=== PATIENT | male | born 1980 | race Caucasian/White ===

== ENCOUNTER 2016-03-16 17:04 | Emergency (ER) | payer BC ==
[~2016-03-16] VITALS: Ht 190.5 cm; Wt 139.7 kg
[2016-03-16 17:18] VITALS: BP 147/97
--- NOTE | 2016-03-16 17:25 | NUR ---
Physician provides patient with large glass of iced water.
[2016-03-16 18:15] LABS: BASOPHILS % (AUTO) 1 % (0-2); EOSINOPHILS # (AUTO) 0.1 10^3uL; EOSINOPHILS % (AUTO) 2 % (0-4); LYMPHOCYTES # (AUTO) 1.7 X10^3; MEAN CORPUSCULAR HEMOGLOBIN 29.8 PG (26.0-34.0); MEAN CORPUSCULAR VOLUME 83 FL (80-100); MEAN PLATELET VOLUME 10.5 FL (6.0-9.5); MONOCYTES # (AUTO) 0.7 X10^3; MONOCYTES % (AUTO) 13 % (3-11); NEUTROPHILS # (AUTO) 2.9 X10^3; NEUTROPHILS % (AUTO) 53 % (51-67); PLATELET COUNT 228 10^3uL (150-450); WHITE BLOOD COUNT 5.46 10^3uL (4.0-11.0)
[2016-03-16 18:17] LABS: MEAN CORPUSCULAR HGB CONC 35.7 g/dL (31.0-37.0)
[2016-03-16 18:26] LABS: ANION GAP 14.7 MEQ/L (3-15); CALCULATED IONIZED CALCIUM 3.7 mg/dL (3.8-4.6); TOTAL PROTEIN 7.3 g/dL (6.4-8.5)
--- NOTE | 2016-03-16 18:35 | NUR ---
Kaycee grace in EDM - 03/16/16 at 2001 by [id number] RT LOWER LEG WOUND COVERED WITH STERILE 4X4 AND COBAN AFTER MD FINISHES WITH INCISION/DRAINAGE OF ABCESS AND PLACING APPROX 3.5" OF IODOFORM PACKING GAUZE. PATIENT DID COMPLAIN OF INCREASED PAIN DURING THE I&D BUT OVERALL TOLERATED WELL.
== END 2016-03-16 19:07 | disposition home or self-care (01) ==
LOC: ED 17:08
DX: R19.5 Other fecal abnormalities (principal); R53.1 Weakness
CPT/HCPCS: 36415; 80053; 83690; 85025; 99282

== ENCOUNTER 2016-06-28 08:51 | Emergency (ER) | payer BC ==
[~2016-06-28] VITALS: Ht 190.5 cm; Wt 136.0 kg
--- OUTSIDE RECORDS SUMMARY | 2016-06-28 08:55 | XMS REPORT | Summary of Care ---
Author Author Shin Monreal M.D. Organization Unknown Address Unknown Phone Unavailable Care Team Providers Care Welding Operator Name Role Phone Shin Monreal M.D. Unavailable Unavailable PCP Assignment in Process Unavailable Unavailable Unavailable Unavailable Functional Status Name Dates Details Functional status health issues are not documented Status: Name Dates Details Cognitive status health issues are not documented Status: Problems Name Dates Details Blepharitis, bilateral (373.00, H01.003) Status: Active Allergic eye reaction (379.99, H57.9) Status: Active Medications Name Dates Details Gopi-Polycin HC 1 % Ophthalmic Ointment APPLY A THIN FILM TO AFFECTED EYE(S) EVERY 3 TO 4 HOURS DIRECTED. Quantity: 1 Refills: 2 Shin Monreal M.D. Start 12-May-2016 Active Allergies and Adverse Reactions Name Dates Details No Known Drug Allergies (Allergy) Status: Active Procedures Procedure Dates Details Procedures not documented Immunization Name Dates Details Immunizations not documented Social History Name Dates Details Unknown if ever smoked Vital Signs Date Test Result Details 12-May-2016 09:47 BP Systolic 140 mm[Hg] Status: Comments: Location: ; Position: BP Diastolic 92 mm[Hg] Status: Comments: Location: ; Position: Temperature 98.8 f Status: Comments: Method: Heart Rate 67 /min Status: Comments: Location: ; Weight 314 lb Status: Physical Findings 98 Status: Comments: O2 Saturation Results Date Description Value Details Results not documented Plan of Care Name Dates Details Planned Observations Planned Goals not documented Interventions Provided Medication ChangesNeo-Polycin HC 1 % Ophthalmic Ointment - Start Instructions Name Dates Details Instructions not documented Encounters Appointment; Shin Monreal M.D. Encounter Diagnosis: Problem not documented On 12-May-2016 09:45
[2016-06-28] MEDS ORDERED: TRAZ-28 PO (09:34)
[2016-06-28] MEDS ORDERED: HYDR-3702 PO (09:52)
[2016-06-28 10:12] VITALS: BP 121/88
--- NOTE | 2016-06-28 10:42 | Diagnostic Imaging Report ---
Clinical indication: Patient with left lateral knee pain. Exam: X-ray of the left knee, 3 views. Comparison: None. Findings: There is no evidence of acute fracture or dislocation. There is suggestion of a small left knee effusion and prepatellar soft tissue swelling. There is moderately hypertrophic spurs involving the patellar facet and small spurs involving the lateral compartment. Impression: 1.: There is no evidence of acute fracture or dislocation. 2: There is suggestion of a small left knee effusion and prepatellar soft tissue swelling. 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 Dictated by: Dictated on workstation # [id number]
== END 2016-06-28 10:10 | disposition home or self-care (01) ==
LOC: ED 08:54
DX: M70.88 Other soft tissue disorders related to use, overuse and pressure other site (principal); Y93.89 Activity, other specified; X50.9XXA Other and unspecified overexertion or strenuous movements or postures, initial encounter
CPT/HCPCS: 73562; 99283